=== PATIENT | female | born 1945 | race Caucasian/White ===

== ENCOUNTER 2019-08-15 10:12 | Inpatient (IN) ==
[2019-08-15] MEDS ORDERED: ONDANSETRON 4 MG/2 ML VIAL ONE (10:43)
[2019-08-15] MEDS ORDERED: ONDANSETRON 4 MG/2 ML VIAL IV STA (10:44)
[2019-08-15 11:16] LABS: Amorphous Crystals,Urine Occasional /HPF (Few); Apearance,Urine CLEAR (Clear); Bacteria,Urine Occasional /HPF (Few); Bilirubin,Urine Negative (Negative); Blood, Urine Negative (Negative); Glucose,Urine (UA) Negative (Negative); Hyaline Casts,Urine 5 /LPF (0-3); Ketones,Urine Negative (Negative); Mucus,Urine Few /LPF (Occasional); Nitrite,Urine Negative (Negative); Protein,Urine 30 MG/DL; RBC,Urine 3 /HPF (0-4); Squamous Epithelial Cell,Urine Occasional /HPF (0-10); Urine Color Yellow (Yellow); Urine Specific Gravity 1.015 (1.001-1.035); Urine Urobilinogen < 2.0 EU/DL (0.2-1.0); WBC,Urine 1 /HPF (0-6)
[2019-08-15 11:22] LABS: Basophils % 0.4 % (0.0-0.8); Hematocrit 37.6 VOL% (35.7-47.0); Hemoglobin 11.3 GM/DL (12.0-16.0); Immature Granulocytes % 0.4 %; Immature Granulocytes Absolute 0.05 #; Lymphocytes # 0.9 10*3/uL (1.4-4.0); Lymphocytes % 7.9 % (21.3-54.2); Mean Corpuscular HGB Conc 30.1 GM/DL (32-36); Mean Corpuscular Volume 83.4 FL (87-102); Mean Platelet Volume 9.4 FL (9.6-12.0); Monocytes % 5.6 % (1.7-12.7); Neutrophils % 85.7 % (38.7-73.9); Platelet Count 305 T/CUMM (130-400); Red Blood Count 4.51 MC/CUMM (3.8-5.5); Red Cell Distribution Width 19.9 % (9.3-17.3); White Blood Count 11.3 T/CUMM (4-12)
[2019-08-15 11:30] LABS: Alanine Aminotransferase 20 U/L (13-56); Alkaline Phosphatase 67 U/L (45-117); Aspartate Amino Transferase 25 U/L (0-37); Blood Urea Nitrogen 19 MG/DL (7-18); Calcium 9.3 MG/DL (8.5-10.1); Estimated Glom Filtration Rate 75 ML/MIN; Glucose 116 MG/DL (74-106); Osmolality,Calculated 279.5 MOS/KG (273-304); Total Protein 7.6 G/DL (6.4-8.3)
[2019-08-15 11:32] LABS: PT Patient Result 10.6 SECS (9.8-11.9); Partial Thromboplastin Time 25.4 SECS (23.9-33.8)
[2019-08-15 11:33] LABS: Barbiturates Screen,Urine Negative (Negative); Benzodiazepines Screen,Urine Negative (Negative); Cannabinoid Screen,Urine Negative (Negative); Opiate Screen,Urine Negative (Negative); Phencyclidine Screen,Urine Negative (Negative)
[2019-08-15] MEDS ORDERED: LABETALOL 20 MG/4 ML SYRINGE IV PRN (11:49)
[2019-08-15] MEDS ORDERED: DEXTROSE 10% 250 ML BAG IV PRN (11:49)
[2019-08-15] MEDS ORDERED: GLUCAGON 1 MG VIAL IM PRN (11:49)
[2019-08-15] MEDS ORDERED: ONDANSETRON 4 MG/2 ML VIAL IV PRN (11:49)
[2019-08-15 12:31] LABS: Risk Ratio 5.92; Thyroid Stimulating Hormone 27.3 uIU/ml (0.358-3.74); VLDL CHOLESTEROL 32.4 MG/DL
[2019-08-15] MEDS: LOSARTAN 50 MG TABLET PO SCH (18:42)
[2019-08-15] MEDS: hydroCHLOROthiazide 12.5 MG CAPSULE PO SCH (18:42)
[2019-08-15] MEDS: LEVOTHYROXINE 25 MCG TABLET PO SCH (18:42)
[2019-08-15] MEDS: VENLAFAXINE XR 75 MG CAPSULE PO SCH (18:42)
[2019-08-15] MEDS: ENOXAPARIN 40 MG/0.4 ML SYRINGE SUBCUT SCH (21:29)
[2019-08-15] MEDS: FERROUS SULFATE 325 MG TABLET PO SCH (21:30)
[2019-08-15] MEDS: ASPIRIN CHEW 81 MG TABLET PO SCH (21:30)
[2019-08-15] MEDS: LINACLOTIDE 145 MCG CAPSULE PO SCH (21:30)
[2019-08-16 05:39] LABS: Basophils # 0.1 10*3/uL (0.0-0.2); Basophils % 0.8 % (0.0-0.8); Eosinophils # 0.1 10*3/uL (0.0-0.87); Eosinophils % 1.2 % (0.00-10.9); Hematocrit 36.4 VOL% (35.7-47.0); Hemoglobin 11.2 GM/DL (12.0-16.0); Immature Granulocytes % 0.4 %; Immature Granulocytes Absolute 0.03 #; Lymphocytes # 1.3 10*3/uL (1.4-4.0); Mean Corpuscular HGB Conc 30.8 GM/DL (32-36); Mean Corpuscular Volume 82.9 FL (87-102); Mean Platelet Volume 9.8 FL (9.6-12.0); Monocytes % 6.5 % (1.7-12.7); Neutrophils % 75.1 % (38.7-73.9); Platelet Count 291 T/CUMM (130-400); Red Blood Count 4.39 MC/CUMM (3.8-5.5); Red Cell Distribution Width 20.2 % (9.3-17.3); White Blood Count 8.3 T/CUMM (4-12)
[2019-08-16 05:57] LABS: Calcium 9.1 MG/DL (8.5-10.1); Osmolality,Calculated 278.5 MOS/KG (273-304)
[2019-08-16] MEDS: LEVOTHYROXINE 25 MCG TABLET PO SCH (06:31)
[2019-08-16] MEDS: VENLAFAXINE XR 75 MG CAPSULE PO SCH (08:51)
[2019-08-16] MEDS: LINACLOTIDE 145 MCG CAPSULE PO SCH (08:51)
[2019-08-16] MEDS: LOSARTAN 50 MG TABLET PO SCH (08:51)
[2019-08-16] MEDS: hydroCHLOROthiazide 12.5 MG CAPSULE PO SCH (08:51)
[2019-08-16] MEDS: FERROUS SULFATE 325 MG TABLET PO SCH ×2 (08:51→22:46)
[2019-08-16 11:55] LABS: Free T4 (Free Thyroxine) 0.37 NG/DL (0.76-1.46)
[2019-08-16] MEDS: ASPIRIN CHEW 81 MG TABLET PO SCH (22:46)
[2019-08-16] MEDS: ATORVASTATIN 40 MG TABLET PO SCH (22:46)
[2019-08-16] MEDS: ENOXAPARIN 40 MG/0.4 ML SYRINGE SUBCUT SCH (22:46)
[2019-08-17 05:13] LABS: Basophils # 0.1 10*3/uL (0.0-0.2); Basophils % 0.5 % (0.0-0.8); Eosinophils # 0.1 10*3/uL (0.0-0.87); Eosinophils % 0.5 % (0.00-10.9); Hematocrit 41.6 VOL% (35.7-47.0); Hemoglobin 13.2 GM/DL (12.0-16.0); Immature Granulocytes % 0.5 %; Immature Granulocytes Absolute 0.05 #; Lymphocytes # 2.1 10*3/uL (1.4-4.0); Lymphocytes % 19.5 % (21.3-54.2); Mean Corpuscular HGB Conc 31.7 GM/DL (32-36); Mean Corpuscular Volume 81.3 FL (87-102); Mean Platelet Volume 10.1 FL (9.6-12.0); Monocytes % 7.7 % (1.7-12.7); Neutrophils % 71.3 % (38.7-73.9); Platelet Count 308 T/CUMM (130-400); Red Blood Count 5.12 MC/CUMM (3.8-5.5); Red Cell Distribution Width 20.8 % (9.3-17.3); White Blood Count 10.7 T/CUMM (4-12)
[2019-08-17 05:28] LABS: Calcium 9.6 MG/DL (8.5-10.1); Osmolality,Calculated 271.2 MOS/KG (273-304)
[2019-08-17] MEDS: POTASSIUM CHLORIDE 20 MEQ/15 ML UDCUP PER TUBE PRN ×2 (09:17→11:53)
[2019-08-17] MEDS: LOSARTAN 50 MG TABLET PO SCH (09:18)
[2019-08-17] MEDS: FERROUS SULFATE 325 MG TABLET PO SCH ×2 (09:18→20:27)
[2019-08-17] MEDS: hydroCHLOROthiazide 12.5 MG CAPSULE PO SCH (09:18)
[2019-08-17] MEDS: LEVOTHYROXINE 25 MCG TABLET PO SCH (09:18)
[2019-08-17] MEDS: VENLAFAXINE XR 75 MG CAPSULE PO SCH (09:18)
[2019-08-17] MEDS: LINACLOTIDE 145 MCG CAPSULE PO SCH (09:30)
[2019-08-17] MEDS: SOTALOL 80 MG TABLET PO SCH ×2 (13:52→20:27)
[2019-08-17] MEDS: APIXABAN 2.5 MG TABLET PO SCH ×2 (13:52→20:27)
[2019-08-17] MEDS: amLODIPine 10 MG TABLET PO SCH (13:52)
[2019-08-17] MEDS: ATORVASTATIN 40 MG TABLET PO SCH (20:27)
[2019-08-17] MEDS: ASPIRIN CHEW 81 MG TABLET PO SCH (20:27)
[2019-08-18 04:53] LABS: Calcium 9.6 MG/DL (8.5-10.1); Osmolality,Calculated 272.4 MOS/KG (273-304)
[2019-08-18 05:09] LABS: Basophils # 0.1 10*3/uL (0.0-0.2); Basophils % 0.4 % (0.0-0.8); Eosinophils # 0.1 10*3/uL (0.0-0.87); Eosinophils % 0.8 % (0.00-10.9); Hematocrit 45.9 VOL% (35.7-47.0); Hemoglobin 14.5 GM/DL (12.0-16.0); Immature Granulocytes % 0.4 %; Immature Granulocytes Absolute 0.05 #; Lymphocytes # 2.2 10*3/uL (1.4-4.0); Lymphocytes % 19.6 % (21.3-54.2); Mean Corpuscular HGB Conc 31.6 GM/DL (32-36); Mean Platelet Volume 10.6 FL (9.6-12.0); Monocytes % 10.2 % (1.7-12.7); Neutrophils % 68.6 % (38.7-73.9); Platelet Count 347 T/CUMM (130-400); Red Blood Count 5.67 MC/CUMM (3.8-5.5); Red Cell Distribution Width 20.8 % (9.3-17.3); White Blood Count 11.3 T/CUMM (4-12)
[2019-08-18] MEDS: LEVOTHYROXINE 25 MCG TABLET PO SCH (05:31)
[2019-08-18] MEDS: VENLAFAXINE XR 75 MG CAPSULE PO SCH (08:21)
[2019-08-18] MEDS: hydroCHLOROthiazide 12.5 MG CAPSULE PO SCH (08:21)
[2019-08-18] MEDS: SOTALOL 80 MG TABLET PO SCH ×2 (08:21→22:40)
[2019-08-18] MEDS: POTASSIUM CHLORIDE 20 MEQ/15 ML UDCUP PER TUBE PRN (08:21)
[2019-08-18] MEDS: LOSARTAN 50 MG TABLET PO SCH (08:21)
[2019-08-18] MEDS: amLODIPine 10 MG TABLET PO SCH (08:21)
[2019-08-18] MEDS: FERROUS SULFATE 325 MG TABLET PO SCH ×2 (08:22→22:40)
[2019-08-18] MEDS: APIXABAN 2.5 MG TABLET PO SCH ×2 (08:22→22:40)
[2019-08-18] MEDS: LINACLOTIDE 145 MCG CAPSULE PO SCH (08:42)
[2019-08-18] MEDS: ASPIRIN CHEW 81 MG TABLET PO SCH (22:40)
[2019-08-18] MEDS: ATORVASTATIN 40 MG TABLET PO SCH (22:40)
[2019-08-19] MEDS: LEVOTHYROXINE 25 MCG TABLET PO SCH (06:20)
[2019-08-19] MEDS: VENLAFAXINE XR 75 MG CAPSULE PO SCH (08:28)
[2019-08-19] MEDS: amLODIPine 10 MG TABLET PO SCH (08:28)
[2019-08-19] MEDS: APIXABAN 2.5 MG TABLET PO SCH ×2 (08:28→23:15)
[2019-08-19] MEDS: SOTALOL 80 MG TABLET PO SCH ×2 (08:28→23:15)
[2019-08-19] MEDS: FERROUS SULFATE 325 MG TABLET PO SCH ×2 (08:28→23:16)
[2019-08-19] MEDS: hydroCHLOROthiazide 12.5 MG CAPSULE PO SCH (08:28)
[2019-08-19] MEDS: LOSARTAN 50 MG TABLET PO SCH (08:29)
[2019-08-19] MEDS: LINACLOTIDE 145 MCG CAPSULE PO SCH (08:29)
[2019-08-19 08:41] LABS: Calcium 9.8 MG/DL (8.5-10.1); Osmolality,Calculated 269.8 MOS/KG (273-304)
[2019-08-19] MEDS: ATORVASTATIN 40 MG TABLET PO SCH (23:15)
[2019-08-19] MEDS: ASPIRIN CHEW 81 MG TABLET PO SCH (23:15)
[2019-08-20 05:49] LABS: Calcium 9.6 MG/DL (8.5-10.1); Osmolality,Calculated 266.1 MOS/KG (273-304)
[2019-08-20] MEDS: LEVOTHYROXINE 25 MCG TABLET PO SCH (07:19)
[2019-08-20] MEDS: FERROUS SULFATE 325 MG TABLET PO SCH ×2 (10:17→21:52)
[2019-08-20] MEDS: LOSARTAN 50 MG TABLET PO SCH (10:17)
[2019-08-20] MEDS: SOTALOL 80 MG TABLET PO SCH ×2 (10:18→21:51)
[2019-08-20] MEDS: LINACLOTIDE 145 MCG CAPSULE PO SCH (10:18)
[2019-08-20] MEDS: amLODIPine 10 MG TABLET PO SCH (10:18)
[2019-08-20] MEDS: VENLAFAXINE XR 75 MG CAPSULE PO SCH (10:18)
[2019-08-20] MEDS: APIXABAN 2.5 MG TABLET PO SCH ×2 (10:18→21:52)
[2019-08-20] MEDS: POTASSIUM CHLORIDE 20 MEQ/15 ML UDCUP PER TUBE PRN (10:19)
[2019-08-20] MEDS: SODIUM CHLORIDE 0.9% 1,000 ML IV SCH ×2 (10:19→21:59)
[2019-08-20] MEDS: ASPIRIN CHEW 81 MG TABLET PO SCH (21:52)
[2019-08-20] MEDS: ATORVASTATIN 40 MG TABLET PO SCH (21:52)
[2019-08-21 05:12] LABS: Basophils # 0.1 10*3/uL (0.0-0.2); Basophils % 0.4 % (0.0-0.8); Eosinophils # 0.2 10*3/uL (0.0-0.87); Eosinophils % 1.3 % (0.00-10.9); Hematocrit 44.4 VOL% (35.7-47.0); Hemoglobin 13.8 GM/DL (12.0-16.0); Immature Granulocytes % 0.4 %; Immature Granulocytes Absolute 0.05 #; Lymphocytes # 2.5 10*3/uL (1.4-4.0); Lymphocytes % 19.3 % (21.3-54.2); Mean Corpuscular HGB Conc 31.1 GM/DL (32-36); Mean Corpuscular Volume 83.1 FL (87-102); Mean Platelet Volume 10.6 FL (9.6-12.0); Monocytes % 9.6 % (1.7-12.7); Platelet Count 380 T/CUMM (130-400); Red Blood Count 5.34 MC/CUMM (3.8-5.5); Red Cell Distribution Width 21.2 % (9.3-17.3); White Blood Count 12.7 T/CUMM (4-12)
[2019-08-21 05:27] LABS: Calcium 9.4 MG/DL (8.5-10.1); Osmolality,Calculated 272.5 MOS/KG (273-304)
[2019-08-21] MEDS: LEVOTHYROXINE 25 MCG TABLET PO SCH (06:09)
[2019-08-21 08:10] VITALS: BP 137/74
[2019-08-21] MEDS: SOTALOL 80 MG TABLET PO SCH (09:41)
[2019-08-21] MEDS: APIXABAN 2.5 MG TABLET PO SCH (09:41)
[2019-08-21] MEDS: POTASSIUM CHLORIDE 20 MEQ/15 ML UDCUP PER TUBE PRN (09:42)
[2019-08-21] MEDS: amLODIPine 10 MG TABLET PO SCH (09:42)
[2019-08-21] MEDS: LOSARTAN 50 MG TABLET PO SCH (09:42)
[2019-08-21] MEDS: FERROUS SULFATE 325 MG TABLET PO SCH (09:42)
[2019-08-21] MEDS: LINACLOTIDE 145 MCG CAPSULE PO SCH (09:42)
[2019-08-21] MEDS: VENLAFAXINE XR 75 MG CAPSULE PO SCH (09:42)
== END 2019-08-21 11:12 | DRG 65 ==
LOC: EDUNIT# → EDBD → N.ED 10:12 → SUATTDRO 11:20 → N.EDINP 11:20 → N.TELEN 12:02 → N.TELES 08-17 14:57
PROVIDERS: ADMIT Internal Medicine; ATTEND Family Medicine

== ENCOUNTER 2019-09-11 22:27 | Inpatient (IN) ==
[2019-09-11] MEDS ORDERED: PANTOPRAZOLE 40 MG VIAL IV STA (22:55)
[2019-09-11] MEDS ORDERED: ONDANSETRON 4 MG/2 ML VIAL IV STA (22:55)
[2019-09-11 23:11] LABS: Basophils % 0.5 % (0.0-0.8); Eosinophils # 0.3 10*3/uL (0.0-0.87); Eosinophils % 3.6 % (0.00-10.9); Hematocrit 38.9 VOL% (35.7-47.0); Hemoglobin 11.8 GM/DL (12.0-16.0); Immature Granulocytes % 0.5 %; Immature Granulocytes Absolute 0.04 #; Lymphocytes # 2.5 10*3/uL (1.4-4.0); Lymphocytes % 27.8 % (21.3-54.2); Mean Corpuscular HGB Conc 30.3 GM/DL (32-36); Mean Corpuscular Volume 85.5 FL (87-102); Mean Platelet Volume 10.8 FL (9.6-12.0); Monocytes % 5.9 % (1.7-12.7); Neutrophils % 61.7 % (38.7-73.9); Platelet Count 255 T/CUMM (130-400); Red Blood Count 4.55 MC/CUMM (3.8-5.5); Red Cell Distribution Width 22.1 % (9.3-17.3); White Blood Count 8.9 T/CUMM (4-12)
[2019-09-11 23:13] LABS: PT Patient Result 11.1 SECS (9.8-11.9)
[2019-09-11 23:18] LABS: Alanine Aminotransferase 89 U/L (13-56); Albumin 2.2 G/DL (3.4-5.0); Alkaline Phosphatase 95 U/L (45-117); Aspartate Amino Transferase 90 U/L (0-37); Bilirubin,Total < 0.39 MG/DL (0.2-1.0); Blood Urea Nitrogen 32 MG/DL (7-18); Calcium 8.8 MG/DL (8.5-10.1); Estimated Glom Filtration Rate 69 ML/MIN; Glucose 117 MG/DL (74-106); Osmolality,Calculated 295.7 MOS/KG (273-304); Total Protein 6.4 G/DL (6.4-8.3)
[2019-09-12 00:01] LABS: Apearance,Urine CLEAR (Clear); Bacteria,Urine Many /HPF (Few); Bilirubin,Urine Negative (Negative); Blood, Urine Negative (Negative); Glucose,Urine (UA) Negative (Negative); Ketones,Urine Negative (Negative); Nitrite,Urine Positive (Negative); Protein,Urine Negative; Urine Color Yellow (Yellow); Urine Specific Gravity 1.024 (1.001-1.035); Urine Urobilinogen < 2.0 EU/DL (0.2-1.0)
[2019-09-12] MEDS ORDERED: GLUCAGON 1 MG VIAL IM PRN (02:12)
[2019-09-12] MEDS ORDERED: DEXTROSE 50% 25 GM/50 ML VIAL IV PRN (02:12)
[2019-09-12 03:49] LABS: Basophils % 0.4 % (0.0-0.8); Eosinophils # 0.3 10*3/uL (0.0-0.87); Eosinophils % 3.2 % (0.00-10.9); Hematocrit 35.4 VOL% (35.7-47.0); Hemoglobin 10.7 GM/DL (12.0-16.0); Immature Granulocytes % 0.7 %; Immature Granulocytes Absolute 0.06 #; Lymphocytes # 2.3 10*3/uL (1.4-4.0); Lymphocytes % 25.6 % (21.3-54.2); Mean Corpuscular HGB Conc 30.2 GM/DL (32-36); Mean Corpuscular Volume 85.3 FL (87-102); Mean Platelet Volume 10.9 FL (9.6-12.0); Monocytes % 7.3 % (1.7-12.7); Neutrophils % 62.8 % (38.7-73.9); Platelet Count 256 T/CUMM (130-400); Red Blood Count 4.15 MC/CUMM (3.8-5.5); Red Cell Distribution Width 21.6 % (9.3-17.3)
[2019-09-12 05:10] LABS: INR 1.1; PT Patient Result 11.4 SECS (9.8-11.9); Partial Thromboplastin Time 29.5 SECS (23.9-33.8)
[2019-09-12] MEDS: SODIUM CHLORIDE 0.9% 1,000 ML IV SCH ×3 (07:08→21:11)
[2019-09-12] MEDS: LEVOTHYROXINE 25 MCG TABLET PO SCH (07:08)
[2019-09-12] MEDS: PANTOPRAZOLE 40 MG VIAL IV SCH ×2 (08:45→21:11)
[2019-09-12 09:42] LABS: Hematocrit 34.3 VOL% (35.7-47.0); Hemoglobin 10.2 GM/DL (12.0-16.0)
[2019-09-12 14:06] LABS: Hematocrit 29.5 VOL% (35.7-47.0); Hemoglobin 8.7 GM/DL (12.0-16.0)
[2019-09-12 20:12] LABS: Hematocrit 25.9 VOL% (35.7-47.0); Hemoglobin 7.7 GM/DL (12.0-16.0)
[2019-09-12] MEDS ORDERED: ATORVASTATIN 40 MG TABLET PO SCH (21:00)
[2019-09-13 05:10] LABS: Basophils % 0.3 % (0.0-0.8); Eosinophils # 0.1 10*3/uL (0.0-0.87); Eosinophils % 0.7 % (0.00-10.9); Hematocrit 25.6 VOL% (35.7-47.0); Hemoglobin 7.9 GM/DL (12.0-16.0); Immature Granulocytes % 0.8 %; Immature Granulocytes Absolute 0.08 #; Lymphocytes # 2.5 10*3/uL (1.4-4.0); Lymphocytes % 26.3 % (21.3-54.2); Mean Corpuscular HGB Conc 30.9 GM/DL (32-36); Mean Corpuscular Volume 85.6 FL (87-102); Monocytes % 5.5 % (1.7-12.7); Neutrophils % 66.4 % (38.7-73.9); Platelet Count 276 T/CUMM (130-400); Red Blood Count 2.99 MC/CUMM (3.8-5.5); Red Cell Distribution Width 21.8 % (9.3-17.3); White Blood Count 9.5 T/CUMM (4-12)
[2019-09-13 05:22] LABS: INR 1.1; PT Patient Result 11.8 SECS (9.8-11.9)
[2019-09-13] MEDS: SODIUM CHLORIDE 0.9% 1,000 ML IV SCH ×2 (05:43→09:28)
[2019-09-13] MEDS: LEVOTHYROXINE 25 MCG TABLET PO SCH (05:47)
[2019-09-13] MEDS: PANTOPRAZOLE 40 MG VIAL IV SCH ×2 (09:24→21:31)
[2019-09-14] MEDS: SODIUM CHLORIDE 0.9% 1,000 ML IV SCH ×4 (01:14→20:58)
[2019-09-14] MEDS: LEVOTHYROXINE 25 MCG TABLET PO SCH (08:32)
[2019-09-14] MEDS: PANTOPRAZOLE 40 MG VIAL IV SCH ×2 (08:32→20:57)
[2019-09-14 09:47] LABS: INR 1.1; PT Patient Result 11.4 SECS (9.8-11.9)
[2019-09-14 09:52] LABS: Calcium 8.7 MG/DL (8.5-10.1); Osmolality,Calculated 301.3 MOS/KG (273-304)
[2019-09-14 10:10] LABS: Alanine Aminotransferase 43 U/L (13-56); Albumin 2.2 G/DL (3.4-5.0); Alkaline Phosphatase 76 U/L (45-117); Aspartate Amino Transferase 41 U/L (0-37); Bilirubin,Indirect 0.3 MG/DL (0.0-1.0); Bilirubin,Total < 0.39 MG/DL (0.2-1.0); Total Protein 5.7 G/DL (6.4-8.3)
[2019-09-14 11:06] LABS: Basophils # 0.1 10*3/uL (0.0-0.2); Basophils % 0.5 % (0.0-0.8); Eosinophils # 0.2 10*3/uL (0.0-0.87); Eosinophils % 1.8 % (0.00-10.9); Hematocrit 25.6 VOL% (35.7-47.0); Hemoglobin 7.6 GM/DL (12.0-16.0); Immature Granulocytes % 1.7 %; Immature Granulocytes Absolute 0.17 #; Lymphocytes # 2.7 10*3/uL (1.4-4.0); Lymphocytes % 27.4 % (21.3-54.2); Mean Corpuscular HGB Conc 29.7 GM/DL (32-36); Mean Corpuscular Volume 89.5 FL (87-102); Mean Platelet Volume 10.6 FL (9.6-12.0); Monocytes % 6.2 % (1.7-12.7); NRBC # 0.13 10*3/uL; Neutrophils % 62.4 % (38.7-73.9); Platelet Count 286 T/CUMM (130-400); Red Blood Count 2.86 MC/CUMM (3.8-5.5); Red Cell Distribution Width 22.2 % (9.3-17.3); White Blood Count 9.9 T/CUMM (4-12)
[2019-09-14 11:26] LABS: Hypochromasia 1+
[2019-09-14 11:27] LABS: Anisocytosis 1+; Microcytosis 1+; Ovalocytes Slight; Platelet Estimate Normal; Polychromasia Slight; Spherocytes Slight; Tear Drop Cells Slight
[2019-09-15] MEDS: SODIUM CHLORIDE 0.9% 1,000 ML IV SCH ×3 (04:55→17:47)
[2019-09-15 06:47] LABS: Calcium 8.5 MG/DL (8.5-10.1); Osmolality,Calculated 293.6 MOS/KG (273-304)
[2019-09-15 07:04] LABS: Basophils # 0.1 10*3/uL (0.0-0.2); Basophils % 0.6 % (0.0-0.8); Eosinophils # 0.2 10*3/uL (0.0-0.87); Eosinophils % 2.4 % (0.00-10.9); Hematocrit 25.8 VOL% (35.7-47.0); Hemoglobin 7.5 GM/DL (12.0-16.0); Immature Granulocytes % 1.3 %; Immature Granulocytes Absolute 0.11 #; Lymphocytes # 2.3 10*3/uL (1.4-4.0); Lymphocytes % 27.1 % (21.3-54.2); Mean Corpuscular HGB Conc 29.1 GM/DL (32-36); Mean Corpuscular Volume 91.2 FL (87-102); Mean Platelet Volume 10.5 FL (9.6-12.0); Monocytes % 6.3 % (1.7-12.7); NRBC # 0.31 10*3/uL; Neutrophils % 62.3 % (38.7-73.9); Platelet Count 292 T/CUMM (130-400); Red Blood Count 2.83 MC/CUMM (3.8-5.5); Red Cell Distribution Width 22.9 % (9.3-17.3); White Blood Count 8.4 T/CUMM (4-12)
[2019-09-15] MEDS: LEVOTHYROXINE 25 MCG TABLET PO SCH (07:11)
[2019-09-15 07:28] LABS: Hypochromasia 1+; Microcytosis 1+; Platelet Estimate Adequate
[2019-09-15] MEDS: PANTOPRAZOLE 40 MG VIAL IV SCH ×2 (08:36→21:41)
[2019-09-15] MEDS ORDERED: SODIUM CHLORIDE 0.9% 1,000 ML IV PRN ×2 (11:17→11:22)
[2019-09-15 19:58] LABS: Hemoglobin 9.2 GM/DL (12.0-16.0)
[2019-09-16] MEDS: SODIUM CHLORIDE 0.9% 1,000 ML IV SCH ×3 (03:25→18:00)
[2019-09-16] MEDS: LEVOTHYROXINE 25 MCG TABLET PO SCH (05:43)
[2019-09-16] MEDS: PANTOPRAZOLE 40 MG VIAL IV SCH ×2 (08:18→21:57)
[2019-09-16 09:10] LABS: Basophils % 0.3 % (0.0-0.8); Eosinophils # 0.2 10*3/uL (0.0-0.87); Eosinophils % 2.3 % (0.00-10.9); Hematocrit 27.7 VOL% (35.7-47.0); Hemoglobin 8.7 GM/DL (12.0-16.0); Immature Granulocytes % 0.7 %; Immature Granulocytes Absolute 0.07 #; Lymphocytes # 1.8 10*3/uL (1.4-4.0); Lymphocytes % 19.2 % (21.3-54.2); Mean Corpuscular HGB Conc 31.4 GM/DL (32-36); Mean Corpuscular Volume 88.5 FL (87-102); Mean Platelet Volume 10.3 FL (9.6-12.0); NRBC # 0.17 10*3/uL; Neutrophils % 71.5 % (38.7-73.9); Platelet Count 229 T/CUMM (130-400); Red Blood Count 3.13 MC/CUMM (3.8-5.5); Red Cell Distribution Width 20.2 % (9.3-17.3); White Blood Count 9.5 T/CUMM (4-12)
[2019-09-16 09:38] LABS: Calcium 8.1 MG/DL (8.5-10.1); Osmolality,Calculated 295.4 MOS/KG (273-304)
[2019-09-16] MEDS ORDERED: POTASSIUM CHLORIDE 20 MEQ/15 ML UDCUP PER TUBE ONE ×2 (09:51→14:34)
[2019-09-16] MEDS ORDERED: POTASSIUM CHLORIDE 20 MEQ/15 ML UDCUP PER TUBE PRN (12:16)
[2019-09-17] MEDS: LEVOTHYROXINE 25 MCG TABLET PO SCH (05:29)
[2019-09-17] MEDS: SODIUM CHLORIDE 0.9% 1,000 ML IV SCH ×2 (07:13→10:15)
[2019-09-17 08:09] LABS: Basophils % 0.3 % (0.0-0.8); Eosinophils # 0.2 10*3/uL (0.0-0.87); Eosinophils % 2.1 % (0.00-10.9); Hematocrit 27.4 VOL% (35.7-47.0); Hemoglobin 8.6 GM/DL (12.0-16.0); Immature Granulocytes % 0.6 %; Immature Granulocytes Absolute 0.05 #; Lymphocytes # 1.7 10*3/uL (1.4-4.0); Lymphocytes % 19.5 % (21.3-54.2); Mean Corpuscular HGB Conc 31.4 GM/DL (32-36); Mean Corpuscular Volume 87.5 FL (87-102); Mean Platelet Volume 10.7 FL (9.6-12.0); Monocytes % 5.9 % (1.7-12.7); NRBC # 0.07 10*3/uL; Neutrophils % 71.6 % (38.7-73.9); Platelet Count 221 T/CUMM (130-400); Red Blood Count 3.13 MC/CUMM (3.8-5.5); Red Cell Distribution Width 21.1 % (9.3-17.3); White Blood Count 8.9 T/CUMM (4-12)
[2019-09-17 08:44] LABS: Calcium 8.1 MG/DL (8.5-10.1); Osmolality,Calculated 286.8 MOS/KG (273-304); Prealbumin 11.9 MG/DL (20-40)
[2019-09-17] MEDS ORDERED: POTASSIUM PHOS/SOD PHOS POWDER 250 MG PACK PO SCH (09:00)
[2019-09-17] MEDS ORDERED: CIPROFLOXACIN 250 MG TABLET PO SCH (10:00)
[2019-09-17] MEDS ORDERED: OMEPRAZOLE ODT 20 MG TABLET PER TUBE SCH (10:11)
[2019-09-17] MEDS: PANTOPRAZOLE 40 MG VIAL IV SCH (10:37)
[2019-09-17 12:53] VITALS: BP 136/77
== END 2019-09-17 13:08 | DRG 813 ==
LOC: EDBD → EDUNIT# → N.ED 22:27 → N.EDINP 22:27 → N.3E 09-12 02:11 → SUATTDRO 09-13 15:17
PROVIDERS: ADMIT Internal Medicine; ATTEND Family Medicine